=== PATIENT | female | born 2000 | race Caucasian/White ===

== ENCOUNTER 2020-12-12 15:46 | Outpatient (REF) | payer MEDICAID, SELFPAY ==
[2020-12-14 15:28] LABS: Chlamydia Result Negative (Negative); GC Result Negative (Negative)
== END 2020-12-12 15:47 | disposition home or self-care (01) ==
LOC: NCHCN 15:46
PROVIDERS: Visit Provider Family Medicine
DX: Z11.3 Encounter for screening for infections with a predominantly sexual mode of transmission (principal)
CPT/HCPCS: 87491; 87591

== ENCOUNTER 2021-05-21 17:03 | Emergency (ER) | payer MEDICAID, SELFPAY ==
[2021-05-21 17:13] VITALS: BP 125/75; PULSE 72; RESP 18; TEMP 37.1; O2SAT 98
--- NOTE | 2021-05-21 17:22 | ED.GENADUL_ITS ---
Discharge Plan Disposition Patient Disposition: HOME Condition: Stable Discharge Details Clinical Impression: Abdominal pain Primary Care Provider: Rosmery,[facility] ED Provider: Brandee Palacios Discharge Instructions Instructions: Low Fat Diet (ED), Abdominal Pain (ED) Additional Instructions: Discussed, I am quite concerned about your gallbladder. I would like for you to come back tomorrow to have outpatient ultrasound CT exam was not very good evaluating your gallbladder. You do have inflammation of your ascending colon as we discussed. Labs are concerning for slight elevation of your liver enzymes. Please encourage water intake. You may use Tylenol as needed for discomfort. Please call primary care tomorrow to schedule appointment after ultrasound to discuss results. If you develop fevers/chills, increased pain, inability to stay hydrated or other new/worsening symptoms please seek care urgently once again. Please stick with low fat diet, as I am concerned this is associated with your gallbladder. You will need to have nothing to eat prior to your ultrasound. Referrals: Zeenat Kwok [[facility]ISTER[facility] NURSE] - Discharge Data Discharge Date/Time-TO BE ENTERED AT DEPARTURE: 05/21/21 20:56 Medical Decision Making Patient is a pleasant 20-year-old female present today with chief complaint of abdominal pain. Abdominal pain began 6 days ago. Worse with p.o. intake. Notes that this is particularly worse with fatty foods. She denies fevers or chills. States she has nausea but no vomiting. States she has had some loose s tools. No previous abdominal surgeries. Denies any abnormal vaginal discharge. LMP less than 1 month ago. Denies any dysuria. On exam, patient appears nontoxic. She has no tenderness at this time. States that she last had this approximately 2 hours prior to arrival after eating cheese at. States the pain can wax and wane as far as intensity as well as length of time that she is having the discomfort. She does not have any pain over McBurney's point. No peritoneal findings. Negative Nair sign. Advised that her history and exam is most concerning for biliary colic. I do not see any evidence to suggest acute cholecystitis. Patient does not appear septic. History exam is not consistent with appendicitis. She does not have any pain in lower abdomen suggest torsion or other gynecological source of her discomfort. Labs reviewed. No leukocytosis. Stable H&H. Patient does have slight bump in her LFTs with an AST of 3 and ALT of 80. Lipase is normal as is her T bili. She I discussed treatment options. I did offer patient to come back tomorrow for ultrasound was do not currently have an smt technician available. However, she states that the pain has been increasing in severity as well as length of time has been lasting after eating. She feels more comfortable with CT imaging. I do feel that this is appropriaten option as her pain has been increasing. FINDINGS: Lungs: Lung bases are clear. Liver: Normal. No mass. Gallbladder and bile ducts: Collapsed gallbladder. Negative for biliary ductal dilatation. Pancreas: Normal. No ductal dilation. Spleen: Normal. No splenomegaly. Adrenal glands: Normal. No mass. Kidneys and ureters: Normal. No hydronephrosis. Stomach and bowel: Wall thickening and mild fat stranding are noted in the ascending colon. Negative for pneumatosis. Remainder of the colon is unremarkable. Terminal ileum appears normal. Small bowel is not dilated. Stomach is unremarkable. Appendix: Normal appendix. Intraperitoneal space: Unremarkable. No free air. No significant fluid collection. Vasculature: Unremarkable. No abdominal aortic aneurysm. Lymph nodes: Unremarkable. No enlarged lymph nodes. Urinary bladder: Unremarkable as visualized. Reproductive: Unremarkable as visualized. Bones/joints: Unremarkable. No acute fracture. Soft tissues: Unremarkable. IMPRESSION: 1. Nonspecific inflammatory changes in the ascending colon. Infectious or inflammatory etiology suspected. 2. Negative for abscess. 3. Negative for bowel obstruction. 4. Negative for acute appendicitis. 5. Collapsed gallbladder. No acute abnormalities appreciated. Discussed findings with the patient. Again, location of the pain as well as her history is most concerning for biliary colic. Will schedule outpatient ultrasound to be completed tomorrow. She has an appointment with her primary care on Friday. However, I did asked that she call tomorrow to see if she may be evaluated after the ultrasound has been completed to obtain the results and discuss continued management. Strict return precautions were discussed. We discussed dietary changes that may help with this. Also questions and concerns were addressed and she is in agreement this plan. HPI General Mode of arrival: ambulatory . Date/Time Provider Initiated Documentation: 05/21/21 17:22 . Limitations to Documentation: no limitations . Information obtained by: patient and RN notes reviewed . History of Present Illness 20 year old F presents to the emergency department with the chief complaint of right sided abdominal pain, described as mild (denies signficant pain now), Quality is described as aching, and is localized to the abdomen. Patient reports no radiation. Patient started experiencing this day(s) and it has been intermittent. No relieving factors improve symptom(s), Eating worsens symptoms . Patient notes no other symptoms.. Patient did receive the following treatments prior to arrival, none Related Data Allergies Allergy/AdvReac Type Severity Reaction Status Date / Time No Known Allergies Allergy Unverified 05/21/21 17:16 General Stated Complaint: Abd Prob KERWIN: 3 Review of Systems Constitutional Constitutional: Reports as per HPI, Denies chills, Denies fatigue, Denies fever(s) and Denies headache(s) ENT Ears, Nose, Mouth, and Throat: Denies headache(s) Cardiovascular Cardiovascular: Reports as per HPI, Denies chest pain and Denies dyspnea Respiratory Respiratory: Reports as per HPI, Denies cough and Denies dyspnea Gastrointestinal Gastrointestinal: Reports as per HPI Musculoskeletal Musculoskeletal: Reports as per HPI and Denies back pain Integumentary/Breasts Skin/Breast: Reports as per HPI and Denies rash Neurologic Neurologic: Reports as per HPI and Denies headache(s) Endocrine Endocrine: Denies fatigue PFSH Social History Smoking/Tobacco Use Status: Never Smoking risk assessment performed?: Yes Alcohol Intake: current Alcohol Intake frequency: holidays/special occasions only Drug use: Never Substance use type: does not use Do you feel safe at home: Yes Do you feel safe in your relationship?: Yes Exam Const General: cooperative, healthy appearing, comfortable, no acute distress and well developed Nutritional Appearance: well nourished and obese Orientation: alert and awake [facility] Head: normal to inspection Mouth: moist mucous membranes Resp Effort & Inspection: normal respiratory effort, able to speak in complete sentences and no respiratory distress Auscultation: clear to auscultation bilaterally, no rales, no rhonchi and no wheezes Cardio Rate: regular rate Rhythm: regular rhythm Heart Sounds: S1 normal and S2 normal GI Inspection: normal to inspection Palpation: soft, no hepatosplenomegaly, not firm, no guarding, not rigid and nontender Percussion: normal to percussion Auscultation: normal bowel sounds Back/Spine/Pelvis Back: no CVA tenderness Skin General skin exam: no rashes or lesions noted Trauma: no lacerations or abrasions Neuro General: patient alert and patient awake Cognition: normal cognition Speech: speech normal Gait: normal gait Psych Appearance: grossly normal and well kempt Mental Status: mental status grossly normal Speech and Movement: speech and movement normal Course Vital Signs Vital signs: Vital Signs Temperature 37.1 C 05/21/21 17:13 Pulse 72 05/21/21 17:13 Respiratory Rate 18 05/21/21 17:13 Blood Pressure 125/75 05/21/21 17:13 Pulse Oximetry 98 05/21/21 17:13 Temperature 37.1 C 05/21/21 17:13 Temperature Source Temporal Artery Scan 05/21/21 17:13 Pulse 72 05/21/21 17:13 Respiratory Rate 18 05/21/21 17:13 Blood Pressure 125/75 05/21/21 17:13 Pulse Oximetry 98 05/21/21 17:13 Oxygen Delivery Method Room Air 05/21/21 17:13 Oxygen Flow Rate 0 05/21/21 17:13
[2021-05-21] MEDS: Ondansetron 4 MG/2 ML VIAL IVP (17:40)
[2021-05-21] MEDS: Normal Saline 1,000 ML 1000 ML IV (17:40)
[2021-05-21 17:42] LABS: Abs Immature Grans 0.02 10^3/uL (0.0-0.06); Absolute Basophil Count 0.05 10^3/uL (0.0-0.2); Absolute Eosinophil Count 0.32 10^3/uL (0.0-0.7); Absolute Lymphocyte Count 1.89 10^3/uL (1.2-3.4); Absolute Neutrophil Count 4.79 10^3/uL (1.2-6.7); Basophils % 0.6; Eosinophils % 3.9; HCT 39.4 % (36.0-46.0); HGB 13.8 g/dL (11.2-15.7); Immature Grans % 0.2; Lymphocytes % 23.1; MCH 30.1 pg (27.0-33.0); MCV 85.8 fL (80-95); MPV 10.2 fL (8.0-11.0); Monocytes % 13.5; Neutrophils % 58.7; Nucleated RBC 0 %; Platelet Count 332 10^3/uL (130-400); RBC 4.59 10^6/uL (3.93-5.22); RDW 11.7 % (11.7-14.6); RDW-SD 36.4 fL; WBC 8.17 10^3/uL (4.4-10.8)
[2021-05-21 17:54] LABS: ALT 80 U/L (14-59); AST 53 U/L (15-37); Albumin 4.4 g/dL (3.4-5.0); Alkaline Phosphatase 55 U/L (46-116); Anion Gap 8.1 mmol/L (3-11); BUN 10 mg/dL (7-18); Bilirubin, Total 0.3 mg/dL (0.2-1.0); CO2 27.9 mmol/L (21.0-32.0); CREATININE 0.8 mg/dL (0.55-1.02); Calcium 8.9 mg/dL (8.5-10.1); Chloride 103 mmol/L (98-107); Glucose 107 mg/dL (74-106); Lipase 131 U/L (73-393); Potassium 3.7 mmol/L (3.5-5.1); Sodium 139 mmol/L (136-145); Total Protein 8.7 g/dL (6.4-8.2)
--- NOTE | 2021-05-21 18:15 | DI.CT_ITS ---
Exam(s) CT ABDOMEN PELVIS W EXAM: CT ABDOMEN PELVIS W CLINICAL HISTORY: RUQ pain. TECHNIQUE: Imaging Protocol: Axial computed tomography images with coronal and sagittal reformatted images were created and reviewed CONTRAST MATERIAL: Intravenous: Omnipaque 100cc Oral: None COMPARISON: No exams were available for comparison FINDINGS: VISUALIZED LUNG BASES: No nodules nor pleural effusions evident. ABDOMEN: There is no ascites. LIVER: There are no focal hepatic lesions evident . GALLBLADDER/BILIARY: Gallbladder is collapsed and difficult to evaluate. However, there is no obviou s gallbladder wall edema nor pericholecystic fluid. CBD is not dilated. PANCREAS: No evidence of pancreatic mass nor dilatation of the pancreatic duct. SPLEEN: Spleen is not enlarged. No obvious intrasplenic lesions. Splenic and portal veins are paten t. ADRENALS: There are no significant adrenal masses. KIDNEYS:No cysts evident. No solid renal masses. No calculi nor hydronephrosis.. ABDOMINAL AORTA: Abdominal aorta is not enlarged. LYMPH NODES:There is no retroperitoneal nor paraaortic adenopathy. ABDOMINAL WALL: No evidence of significant anterior abdominal wall nor inguinal hernia. GI: There is mild thickening of the wall of the ascending-right colon and hepatic flexure and proxima l transverse colon. Appendix appears unremarkable. No obvious abnormality of the terminal ileum. S mall lymph nodes in the adjacent mesentery noted. No abnormal fluid collection. PELVIS: GI: No evidence of appendicitis.No evidence of sigmoid diverticulitis. LYMPH NODES: There is no intrapelvic nor inguinal adenopathy. REPRODUCTIVE: Age-appropriate URINARY BLADDER: No calculi nor obvious masses evident OSSEOUS: No significant osseous lesions. IMPRESSION: 1. The main finding here is edema throughout the wall of the ascending colon and proximal transverse colon. Suspicious for colitis. No perforation. No significant dilatation. 2. No evidence of acute appendicitis. No diverticulitis. No bowel obstruction. No free air. Nor a bscess 3. Gallbladder is contracted and difficult to assess but does not appear edematous and there are no o bvious calcified gallstones. 4. No significant osseous findings. RADIATION DOSE DELIVERED: 1,228.85mGy.cm Total DLP DATA REPOSITORY: All CT scans at this facility are submitted to the National Radiology Data Registry (NRDR) Dose Index Registry (DIR) with the [employer] (ACR). RADIATION OPTIMIZATION: All CT scans at this facility use at least one of these dose optimization te chniques: automated exposure control; mA and/or kV adjustment per patient size (includes targeted exa ms where dose is matched to clinical indication); or iterative reconstruction.
[2021-05-21 18:55] VITALS: BP 96/66; PULSE 71; TEMP 36.7; O2SAT 96
[2021-05-21 19:11] VITALS: BP 115/78; PULSE 78; RESP 16; O2SAT 98
[2021-05-21 19:25] LABS: Bilirubin Negative (Negative); Blood Trace-intact (Negative); Clarity Clear (Clear); Glucose Negative (Negative); Ketones Negative (Negative); Leukocyte Esterase Trace (Negative); Nitrite Negative (Negative); Specific Gravity >= 1.030 (1.005-1.025); Urobilinogen 0.2 EU/dL (Up TO 0.2); pH 6.5 (5-8)
[2021-05-21] MEDS: Normal Saline - Diluent 50 ML VIAL IV (19:26)
[2021-05-21] MEDS: Omnipaque 350 MG/ML 100 ML BTL IJ (19:26)
[2021-05-21 19:35] LABS: Bacteria Few HPF (Negative); C & S Indicated? No/Sq. Contamination; Crystals Negative HPF (Negative); Epithelial Cells Many HPF (Negative); Mucus Negative (Negative); RBC 0-2 HPF (0-2)
--- NOTE | 2021-05-21 20:26 | DI.VRAD_ITS ---
PROCEDURE INFORMATION: Exam: CT Abdomen And Pelvis With Contrast Exam date and time: 05/21/2021 6:28 PM Age: 20 years old Clinical indication: Abdominal pain; Localized; Right upper quadrant (ruq); Patient HX: Ruq pain TECHNIQUE: Imaging protocol: Computed tomography of the abdomen and pelvis with contrast. COMPARISON: No relevant prior studies available. FINDINGS: Lungs: Lung bases are clear. Liver: Normal. No mass. Gallbladder and bile ducts: Collapsed gallbladder. Negative for biliary ductal dilatation. Pancreas: Normal. No ductal dilation. Spleen: Normal. No splenomegaly. Adrenal glands: Normal. No mass. Kidneys and ureters: Normal. No hydronephrosis. Stomach and bowel: Wall thickening and mild fat stranding are noted in the ascending colon. Negative for pneumatosis. Remainder of the colon is unremarkable. Terminal ileum appears normal. Small bowel is not dilated. Stomach is unremarkable. Appendix: Normal appendix. Intraperitoneal space: Unremarkable. No free air. No significant fluid collection. Vasculature: Unremarkable. No abdominal aortic aneurysm. Lymph nodes: Unremarkable. No enlarged lymph nodes. Urinary bladder: Unremarkable as visualized. Reproductive: Unremarkable as visualized. Bones/joints: Unremarkable. No acute fracture. Soft tissues: Unremarkable. IMPRESSION: 1. Nonspecific inflammatory changes in the ascending colon. Infectious or inflammatory etiology suspected. 2. Negative for abscess. 3. Negative for bowel obstruction. 4. Negative for acute appendicitis. 5. Collapsed gallbladder. No acute abnormalities appreciated. Dictated and Authenticated by: Kalyan Gonzalez MD. Ordering:MIRELA Irvin MD
[2021-05-21 20:54] VITALS: BP 99/67; PULSE 68; RESP 16; TEMP 36.8; O2SAT 98
== END 2021-05-21 20:56 | disposition home or self-care (01) ==
PROVIDERS: Emergency Provider Physician Assistant
DX: R10.11 Right upper quadrant pain (principal); R11.0 Nausea; R93.3 Abnormal findings on diagnostic imaging of other parts of digestive tract
CPT/HCPCS: 36415; 80053; 81025; 83690; 96361; 96374; 99285; 74177; 81003; 81015; 83735; 85025; 99284; J2405; J3490

== ENCOUNTER 2021-05-22 14:59 | Outpatient (CLI) | payer MEDICAID, SELFPAY ==
--- NOTE | 2021-05-22 | DI.US_ITS ---
Exam(s) US ABDOMEN LIMITED EXAM: US ABDOMEN LIMITED CLINICAL HISTORY: RUQ PAIN POST FOOD TECHNIQUE: Ultrasound abdomen performed using standard protocol. COMPARISON: No exams were available for comparison FINDINGS: There is no ascites evident. LIVER: Not scanned GALLBLADDER/BILIARY: There are no gallstones. No gallbladder wall edema nor pericholecystic fluid. The common hepatic duct isnot dilated, measuring 3-4mm at the level of chika hepatis. PANCREAS: Not able to be seen due to overlying bowel gas IMPRESSION: 1. No evidence of cholelithiasis nor dilatation of the biliary tree. 2. Pancreas was not able to be visualized due to overlying bowel gas. 3. There is no ascites. DATA REPOSITORY:
--- NOTE | 2021-05-22 10:47 | W.ED.FU ---
Date of service: 05/22/21 Time of Service: 10:47 Follow Up Plan: Yuri made to patient and relayed negative Gall bladder US results. Patient verbalized understanding.
== END 2021-05-22 15:19 ==
PROVIDERS: Visit Provider Physician Assistant
DX: R10.11 Right upper quadrant pain (principal)
CPT/HCPCS: 76705

== ENCOUNTER 2022-08-03 14:32 | Outpatient (REF) | payer MEDICAID, SELFPAY ==
[2022-08-05 23:53] LABS: COVID-19 RT-PCR UVMMC Result Negative (Negative)
== END 2022-08-03 14:33 | disposition home or self-care (01) ==
LOC: LBN 14:32
PROVIDERS: Visit Provider Nurse Practitioner Family
DX: R53.81 Other malaise (principal); Z20.822 Contact with and (suspected) exposure to COVID-19
CPT/HCPCS: U0003

== ENCOUNTER 2022-08-04 15:22 | Emergency (ER) | payer MEDICAID, SELFPAY ==
[2022-08-04] VITALS (67 sets, daily range): BP systolic 106–131; BP diastolic 54–77; PULSE 98–134; RESP 18; TEMP 37.2–38.1; O2SAT 71–100
--- NOTE | 2022-08-04 15:30 | RT.EKG_ITS ---
APPROVED REPORT Exam: Resting ECG Reason for Exam: tachycardia Patient Location: E HR:112 bpm ECG Measurements Heart Rate 112 AXIS ND 145 P 23 QRSd 76 QRS 59 QT 317 T 35 QTc 433 Conclusion Sinus tachycardia...rate> 99. Sinus. Normal axis. No STEMI. I have reviewed and interpreted ECG and agree with software generated interpretation.
--- NOTE | 2022-08-04 15:32 | ED.GENADUL_ITS ---
Discharge Plan Disposition Patient Disposition: Home Condition: Improving Discharge Details Clinical Impression: Viral syndrome, Fever, Nausea and vomiting Primary Care Provider: Rosmery,[facility] ED Provider: Kimberly Tillman Discharge Instructions Instructions: Fever in Adults (ED), Acute Nausea and Vomiting (ED), Viral Syndrome (ED) Additional Instructions: Your blood tests are reassuring and show no evidence of acute concerning findings. Your COVID, influenza and RSV swabs today are negative today. You still may have COVID or influenza. These are viral illnesses that are best treated with fluids, rest and alternating Tylenol and Motrin. Take the Zofran as directed for nausea and vomiting. Follow-up with your primary care doctor in 1 week. Return to the emergency department with any worsening or new concerning symptoms. Discharge Data Discharge Date/Time-TO BE ENTERED AT DEPARTURE: 08/04/22 17:21 Discharge Physician: Kimberly Tillman Medical Decision Making 21-year-old female with a history of anxiety and depression presents from home for 3 days of fever, generalized fatigue, dizziness and vomiting. Temp on arrival 100.6. Heart rate 130s. She has normal respiratory rate and oxygen saturation. Normal ENT exam. Lungs clear bilaterally. Abdomen soft nontender. Suspect viral illness such as COVID, influenza. History and presen tation does not appear consistent with meningitis, pneumonia, acute abdominal abnormality, UTI or PE. Place an IV, bolus IV fluids, screening labs, bolus IV fluids, IV Tylenol, IV Toradol, IV Zofran and reassess. A rapid antigen test was obtained and negative for COVID and influenza. Labs reviewed and noted white blood cell count of 13.52. Potassium 3.3. Patient reassessed and heart rate 90s and she is now afebrile. Patient is texting on phone and appears in no acute distress. Patient feels comfortable going home. Discussed with patient that her symptoms could still be secondary to COVID or influenza. Advised to increase fluids, rest, alternate Tylenol and Motrin. Advised to follow up with the primary care doctor for re-evaluation. Usual and customary return precautions given prior to discharge. Medical Records Medical records reviewed: Yes I reviewed the patient's medical records. Lab Data Lab results reviewed: Yes I reviewed the patient's lab results. Labs: Laboratory Tests Range/Units 08/04/22 08/04/22 15:25 15:25 WBC (4.4-10.8) 10^3/uL 13.52 H RBC (3.93-5.22) 10^6/uL 4.08 Hgb (11.2-15.7) g/dL 12.2 Hct (36.0-46.0) % 35.7 L MCV (80-95) fL 88 MCH (27.0-33.0) pg 29.9 MCHC (32.0-36.0) % 34.2 RDW (11.7-14.6) % 11.7 Plt Count (130-400) 10^3/uL 287 MPV (8.0-11.0) fL 10.0 Immature Gran % 0.4 Neutrophils % 80.7 Lymphocytes % 5.2 Monocytes % 13.6 Eosinophils % 0.0 Basophils % 0.1 Nucleated RBC % (0.0-0.3) % 0.0 Absolute Neutrophils (1.2-6.7) 10^3/uL 10.91 H Absolute Lymphocytes (1.2-3.4) 10^3/uL 0.70 L Absolute Monocytes (0.1-0.8) 10^3/uL 1.84 H Absolute Eosinophils (0.0-0.7) 10^3/uL 0.00 Absolute Basophils (0.0-0.2) 10^3/uL 0.01 RBC Morphology Normal Sodium (136-145) mmol/L 134 L Potassium (3.5-5.1) mmol/L 3.3 L Chloride (98-107) mmol/L 97 L Carbon Dioxide (21.0-32.0) mmol/L 27.6 Anion Gap (3-11) mmol/L 9.4 BUN (7-18) mg/dL 7 Creatinine (0.55-1.02) mg/dL 1.1 H Est GFR (CKD-EPI 2020) (mL/min/1.73m2) 73.31 Glucose (74-106) mg/dL 132 H Calcium (8.5-10.1) mg/dL 9.0 Total Bilirubin (0.2-1.0) mg/dL 0.5 AST (15-37) U/L 21 ALT (14-59) U/L 21 Alkaline Phosphatase (46-116) U/L 52 Total Protein (6.4-8.2) g/dL 8.9 H Albumin (3.4-5.0) g/dL 3.7 HPI General Mode of arrival: ambulatory . Date/Time Provider Initiated Documentation: 08/04/22 15:39 . Limitations to Documentation: no limitations . Information obtained by: patient . HPI Narrative: Pt is a 21yo F who presents to the ED w/ a c/o fever, vomiting, dizziness and generalized weakness and fatigue for the past 3 days. She states her fever has been high as 102. She took 1 tab of Motrin earlier today. She states she was seen at the urgent care recently for her complaints and tested negative for the flu and COVID. She states today she vomited once and it was mainly bile. She denies ear pain, neck pain, sore throat, chest pain, difficulty breathing, abdominal pain, urinary symptoms or diarrhea. Related Data Allergies Allergy/AdvReac Type Severity Reaction Status Date / Time No Known Allergies Allergy Unverified 05/21/21 17:16 General Stated Complaint: Dizzy/Sync KERWIN: 3 Review of Systems All systems reviewed & are unremarkable except as noted in HPI and below Constitutional Constitutional: Reports as per HPI, Denies chills, Reports fatigue, Reports fever(s), Reports malaise and Reports weakness Eyes Eyes: Denies blurry vision ENT Ears, Nose, Mouth, and Throat: Reports dizziness, Denies sore throat and Denies throat swelling Cardiovascular Cardiovascular: Denies chest pain and Denies dyspnea Respiratory Respiratory: Denies cough and Denies dyspnea Gastrointestinal Gastrointestinal: Denies abdominal pain, Denies diarrhea, Reports nausea and Reports vomiting Genitourinary Genitourinary: Denies hematuria and Denies dysuria Musculoskeletal Musculoskeletal: Denies back pain and Denies numbness Integumentary/Breasts Skin/Breast: Denies lesions and Denies rash Neurologic Neurologic: Reports dizziness, Denies localized weakness, Denies numbness and Reports weakness Endocrine Endocrine: Reports fatigue Allergic/Immunologic Allergic/Immunologic: Denies throat swelling PFSH All Active Problems (Updated 08/04/22 @ 17:00 by Kimberly Tillman DO) Viral illness (Acute) Fever (Acute) Nausea and vomiting (Acute) Abdominal pain (Acute) Medical History (Updated 08/04/22 @ 17:00 by Kimberly Tillman DO) Anxiety Depression Surgical History (Updated 12/25/22 @ 15:41 by Kimberly Tillman DO) No significant past surgical history Social History Smoking/Tobacco Use Status: Never Smoking risk assessment performed?: Yes Alcohol Intake: current Alcohol Intake frequency: holidays/special occasions only Drug use: Never Substance use type: does not use Do you feel safe at home: Yes Do you feel safe in your relationship?: Yes Exam Const General: cooperative and no acute distress Nutritional Appearance: obese morbidly obese Orientation: alert, awake and oriented x3 HENMT Head: normal to inspection Face and sinus: normal facial exam Eyes General: appearance normal, both eyes and all related structures Pupils: PERRL EOM: EOM intact bilaterally Neck Neck: normal visual inspection and No submandibular swelling Lymphatic: no lymphadenopathy noted Chest Chest: normal inspection of the chest and no tenderness Resp Effort & Inspection: normal respiratory effort and able to speak in complete sentences Auscultation: clear to auscultation bilaterally Cardio Rate: regular rate Rhythm: regular rhythm GI Inspection: normal to inspection Palpation: soft, not firm, not rigid and nontender Auscultation: hypoactive bowel sounds Skin General skin exam: no rashes or lesions noted Neuro General: patient alert, patient awake and patient oriented x3 Cognition: normal cognition Speech: speech normal Motor: muscle tone normal throughout Sensory Exam: no sensory deficits noted Extrem General: normal to inspection, full ROM, capillary refill normal, no calf tenderness bilaterally and no edema Psych Appearance: grossly normal Mental Status: mental status grossly normal Speech and Movement: speech and movement normal Affect: normal affect Course Vital Signs Vital signs: Vital Signs Temperature 100.6 F H 08/04/22 15:24 Pulse 134 H 08/04/22 15:24 Respiratory Rate 18 08/04/22 15:24 Blood Pressure 121/77 08/04/22 15:24 Pulse Oximetry 96 08/04/22 15:24 Temperature 100.6 F H 08/04/22 15:24 Temperature Source Oral 08/04/22 15:24 Pulse 134 H 08/04/22 15:24 Respiratory Rate 18 08/04/22 15:24 Blood Pressure 121/77 08/04/22 15:24 Pulse Oximetry 96 08/04/22 15:24 Oxygen Delivery Method Room Air 08/04/22 15:24 Oxygen Flow Rate 0 08/04/22 15:24 Pain Level 6 08/04/22 15:24
[2022-08-04 15:40] LABS: Abs Immature Grans 0.05 10^3/uL (0.0-0.06); Absolute Monocyte Count 1.84 10^3/uL (0.1-0.8); Absolute Neutrophil Count 10.91 10^3/uL (1.2-6.7); Basophils % 0.1; HCT 35.7 % (36.0-46.0); HGB 12.2 g/dL (11.2-15.7); Immature Grans % 0.4; Lymphocytes % 5.2; MCH 29.9 pg (27.0-33.0); MCHC 34.2 % (32.0-36.0); MCV 88 fL (80-95); Monocytes % 13.6; Neutrophils % 80.7; Platelet Count 287 10^3/uL (130-400); RBC 4.08 10^6/uL (3.93-5.22); RDW 11.7 % (11.7-14.6); RDW-SD 37.3 fL; WBC 13.52 10^3/uL (4.4-10.8)
[2022-08-04 15:42] LABS: Absolute Basophil Count 0.01 10^3/uL (0.0-0.2)
[2022-08-04] MEDS: ACETAMINOPHEN 1,000 MG/100 ML BTL 400 MG IVPB (15:49)
[2022-08-04] MEDS: Normal Saline 1,000 ML 1000 ML IV (15:49)
[2022-08-04] MEDS: Ketorolac 30 MG/ML VIAL IVP (15:50)
[2022-08-04] MEDS: Ondansetron 4 MG/2 ML VIAL IVP (15:50)
[2022-08-04 16:01] LABS: Diff Comment Agrees w/ Instrument; RBC Morphology Normal
[2022-08-04 16:05] LABS: ALT 21 U/L (14-59); AST 21 U/L (15-37); Albumin 3.7 g/dL (3.4-5.0); Alkaline Phosphatase 52 U/L (46-116); Anion Gap 9.4 mmol/L (3-11); BUN 7 mg/dL (7-18); Bilirubin, Total 0.5 mg/dL (0.2-1.0); CO2 27.6 mmol/L (21.0-32.0); CREATININE 1.1 mg/dL (0.55-1.02); Chloride 97 mmol/L (98-107); Estimated GFR 73.31 (mL/min/1.73m2); Glucose 132 mg/dL (74-106); Potassium 3.3 mmol/L (3.5-5.1); Sodium 134 mmol/L (136-145); Total Protein 8.9 g/dL (6.4-8.2)
[2022-08-04] MEDS: Ondansetron O.D.T. 4 MG TABEF, 3 TABS/BTL PO (17:09)
== END 2022-08-04 17:21 | disposition home or self-care (01) ==
PROVIDERS: Emergency Provider Physician Assistant
DX: B34.9 Viral infection, unspecified (principal); E66.01 Morbid (severe) obesity due to excess calories; Z20.822 Contact with and (suspected) exposure to COVID-19
CPT/HCPCS: 80053; 81025; 93005; 96365; 96375; 99284; 85025; 93010; J0131; J1885; J2405

== ENCOUNTER → 2024-01-02 18:06 | Outpatient (REF) | payer MEDICAID, SELFPAY ==
--- NOTE | 2024-01-02 | DI.RAD_ITS ---
Exam(s) XR ANKLE LT COMPLETE EXAM: XR ANKLE LT COMPLETE CLINICAL HISTORY: pain lt ankle. TECHNIQUE: 2D digital imaging was performed. COMPARISON: No exams were available for comparison FINDINGS: 3 views No evidence of fracture or widening of the ankle mortise. Talar dome unremarkable. No degenerative changes. Bone density normal. No osseous lesions. IMPRESSION: No acute osseous findings. DATA REPOSITORY: RADIATION DOSE DELIVERED:
== END ==
LOC: DI 18:06
PROVIDERS: Visit Provider Physician Assistant Medical
DX: M25.572 Pain in left ankle and joints of left foot (principal)
CPT/HCPCS: 73610